=== PATIENT | male | born 1945 | race Caucasian/White ===

== ENCOUNTER 2021-12-19 11:07 | Outpatient (RCR) | payer OTHER, SELFPAY ==
[2021-12-19 11:21] VITALS: BP 127/80; PULSE 57; RESP 16; TEMP 35.8; O2SAT 97
[2021-12-19] MEDS: DEGARELIX ACETATE 80 MG INJ SUBCUT (11:48)
== END 2021-12-23 23:59 | disposition home or self-care (01) ==
LOC: CCIC 11:07
PROVIDERS: PCP Family Medicine; Visit Provider Internal Medicine
DX: C61 Malignant neoplasm of prostate (principal)
CPT/HCPCS: 96401; J9155

== ENCOUNTER 2022-01-04 11:12 | Outpatient (CLI) | payer OTHER, SELFPAY | END 2022-01-04 11:13 | disposition home or self-care (01) | LOC: RAD 11:14 | PROVIDERS: PCP Family Medicine; Visit Provider Internal Medicine Cardiovascular Disease | DX: I47.1 Supraventricular tachycardia (principal); Z95.1 Presence of aortocoronary bypass graft; Z95.810 Presence of automatic (implantable) cardiac defibrillator | CPT/HCPCS: 93306 ==

== ENCOUNTER 2022-01-24 11:03 | Outpatient (RCR) | payer OTHER, SELFPAY ==
--- NOTE | 2022-01-10 16:35 | ONC.NURNOTE ---
Authorization: User: Margaux Almanza Date: 10/09/21 11:36 Type: Eligibility Determination Note... Received request for prior auth for degrelix ([id number]). Per Leigh at [facility], prior auth is not required for this medication. call ref #[id number]
--- NOTE | 2022-01-15 09:31 | ONC.NURNOTE ---
Stop treatment with firmagon: Received call from [facility] for Dr. Barrie Brink. Mr. Metz has decided to stop firmagon treatment. Appointment for 01/16/22 cancelled. Pharmacy notified.
[2022-01-24 17:02] LABS: PSA Diagnostic* < 0.06 ng/mL (0.10-4.00)
[2022-01-27 04:42] LABS: Testosterone, Adult Male < 3 ng/dL (300-720)
--- NOTE | 2022-01-30 08:43 | ONC.NURNOTE ---
Patient called today stating that he had a lingering cough from testing positive for COVID on 01/15. He did an at home test and continues to be positive. Ran this past Clinic RN. Decided it would be best to move his appointment out 1 week. Rescheduled for next friday02/06/22 at 1500. Patient was notified of this and is able to come next weekend.
== END 2022-07-23 23:59 | disposition home or self-care (01) ==
LOC: CCIC 11:03
PROVIDERS: Clinical Nurse Specialist; PCP Family Medicine; Visit Provider Internal Medicine
DX: C61 Malignant neoplasm of prostate (principal)
CPT/HCPCS: 36415; 84153; 84403; 99212; 99213

== ENCOUNTER 2023-10-15 14:26 | Emergency (ER) | payer OTHER, SELFPAY ==
--- NOTE | 2023-10-15 14:29 | XR_ITS ---
Patient: VASQUEZ MENDEZ Facility:?[facility] Patient ID:?[id number] Site Patient ID:?[id number]. Site :?[id number] Study:?XRay-Extremity Left FEMUR 2 VIEWS-10/15/2023 3:48:49 PM Ordering Physician:KARLA Final Report: Indication: FALL, LT DISTAL FEMUR PAIN Technique: Two views of the left femur Comparison: None Findings: No acute, displaced fracture or malalignment. Likely sequela of remote greater trochanter avulsion fracture. 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 No significant osteoarthritic degenerative changes of the knee. There may be a trace suprapatellar joint effusion. No suspicious osseous lesions. Vascular calcifications. Vascular clips seen in the soft tissues along the medial aspect of the knee. Impression: No acute fracture or malalignment. Dictated by Eloy Martinez MD @ 10/15/2023 4:09:26 PM Signed by:?Eloy Martinez MD @10/15/2023 4:09:26 PM (Electronic Signature)
[2023-10-15 14:31] VITALS: BP 181/82; PULSE 60; RESP 18; TEMP 36.3; O2SAT 97; BMI 28.4
--- NOTE | 2023-10-15 14:48 | ED.LOWEXIN ---
HPI - Extremity Injury (Lower) General Date Seen: 10/15/23 Chief Complaint: Extremity Pain/Injury, Lower Stated Complaint: Fall, L leg injury Time Seen by Provider: 10/15/23 14:30 Source: patient Mode of arrival: ambulatory Limitations: no limitations History of Present Illness HPI Narrative: Patient is an 78-year-old male presenting for left leg pain. He was mowing the lawn when he says he slipped and fell and he was backing hurting his left leg. States the pain is just proximal to his knee on the medial aspect. Has been unable to get put pressure on it secondary to pain but was able to move with the help of a walker. No other injuries noted. Denies hitting head. States he thought he heard something snap when he fell. At rest he has no pain. No other concerns noted at this time. Denies any numbness to the legs. Related Data Home Medications ?Medication ?Instructions ?Recorded ?Confirmed aspirin 81 mg capsule 81 mg PO DAILY 12/17/21 02/06/22 atenolol 25 mg tablet 25 mg PO DAILY 12/17/21 10/15/23 cholecalciferol (vitamin D3) 25 25 mcg PO DAILY 12/17/21 02/06/22 mcg (1,000 unit) capsule (Vitamin D3) coenzyme Q10 10 mg capsule 10 mg PO DAILY 12/17/21 02/06/22 ibuprofen 200 mg capsule 200 mg PO Q6-8H PRN 12/17/21 02/06/22 melatonin 3 mg capsule 3 mg PO HS PRN 12/17/21 02/06/22 multivitamin 1 tab PO DAILY 12/17/21 02/06/22 omega 9-hka-lcm-fish oil 1,000 mg 1 cap PO DAILY 12/17/21 02/06/22 (120 mg-180 mg) capsule (Fish Oil) simvastatin 20 mg tablet 20 mg PO DAILY 12/17/21 10/15/23 zinc sulfate 50 mg zinc (220 mg) 50 mg PO .week 02/06/22 02/06/22 tablet apixaban 5 mg tablet (Eliquis) 5 mg PO BID 10/15/23 10/15/23 Allergies Allergy/AdvReac Type Severity Reaction Status Date / Time No Known Allergies Allergy Unknown Unverified 12/25/21 15:32 Review of Systems Narrative: Pertinent systems reviewed and were negative unless stated in HPI PFSH [facility] Medical History (Updated 10/15/23 @ 16:23 by Nicolas Mayo, DO) Implantable cardioverter-defibrillator (ICD) in situ ?Z95.810 - Presence of automatic (implantable) cardiac defibrillator (ICD-10) PSVT (paroxysmal supraventricular tachycardia) ?I47.1 - Supraventricular tachycardia (ICD-10) Cardiac arrest (~2003) ?I46.9 - Cardiac arrest, cause unspecified (ICD-10) Prostate cancer ?C61 - Malignant neoplasm of prostate (ICD-10) Surgical History (Updated 12/19/21 @ 10:12 by Tena Sutherland, LITIGATION SUPPORT ANALYST) S/P prostatectomy ?Z90.79 - Acquired absence of other genital organ(s) (ICD-10) Social History Smoking Status: Never smoker Do you use any of these nicotine containing products: None Second hand tobacco smoke exposure: No How often do you have a drink containing alcohol: never AUDIT-C Alcohol total score: 0 Non-prescribed substance use: denies use service: No Exam Narrative: Exam Narrative: Const: Well-nourished, Well-developed, in mild distress Eyes: PERRL, no conjunctival injection, and symmetrical lids HENT: Atraumatic external nose and ears. Moist mucous membranes. CVS: Peripheral pulses 2+ and equal in lower extremities MSK:Extremities w/o deformity, Normal Active ROM Skin: Warm, Dry. No rashes or lesions. Neuro: Normal Muscle tone, No focal neurological deficits. Psych: Awake, Alert, & Oriented x3. Appropriate mood and affect. Const: Vital Signs, click to edit/add: Vital Signs - 24 hr 10/15/23 14:31 Temperature 97.3 F L Pulse Rate [Right Pulse Oximeter] 60 Respiratory Rate 18 Blood Pressure [Ri ght Upper Arm] 181/82 H Pulse Oximetry 97 Oxygen Delivery Me thod Room Air Course Vital Signs Vital signs: Initial Vital Signs Temperature 97.3 F L 10/15/23 14:31 Temperature Source Temporal Artery Scan 10/15/23 14:31 Pulse Rate 60 10/15/23 14:31 Respiratory Rate 18 10/15/23 14:31 Blood Pressure 181/82 H 10/15/23 14:31 Blood Pressure Mean 115 H 10/15/23 14:31 Blood Pressure Position Sitting 10/15/23 14:31 Pulse Oximetry 97 10/15/23 14:31 Oxygen Delivery Method Room Air 10/15/23 14:31 Vital Signs Temperature 97.3 F L 10/15/23 14:31 Pulse Rate 60 10/15/23 14:31 Respiratory Rate 18 10/15/23 14:31 Blood Pressure 181/82 H 10/15/23 14:31 Pulse Oximetry 97 10/15/23 14:31 Oxygen Delivery Method Room Air 10/15/23 14:31 Temperature 97.3 F L 10/15/23 14:31 Pulse Rate 60 10/15/23 14:31 Respiratory Rate 18 10/15/23 14:31 Blood Pressure 181/82 H 10/15/23 14:31 Pulse Oximetry 97 10/15/23 14:31 Oxygen Delivery Method Room Air 10/15/23 14:31 Medications Administered Medications: Discontinued Medications Generic Name Dose Route Start Last Admin Trade Name Freq PRN Reason Stop Dose Admin Ketorolac Tromethamine 30 mg 10/15/23 14:49 10/15/23 15:29 Ketorolac 30 Mg/Ml Inj IM 10/15/23 14:50 30 mg ONCE ONE Administration MDM - Extremity Injury (Lower) MDM Narrative Medical decision making narrative: Patient is an 78-year-old male presenting for left leg pain. This occurred after fall. X-ray of the femur was ordered. Reviewed myself the radiologist showing no signs of a fracture. Patient is still having some difficulty point pressure on the left leg but is able ambulate with a walker. Seth wrap was placed around the area of pain. I spoke to him his about possible admission under observation versus discharge home and orthopedic follow-up. He will be for discharge at this time. This seems reasonable as he was able to ambulate with a walker. Imaging Data Left femur x-ray: Attestation: I have reviewed the pertinent imaging results. Radiologist's impression: No acute fracture or malalignment. Dictated by Eloy Martinez MD @ 10/15/2023 4:09:26 PM Discharge Plan Discharge Clinical Impression: Acute leg pain Patient Disposition: Home, Self-Care Condition: Stable Instructions: Leg Pain (ED) Additional Instructions: Take Tylenol and ibuprofen for pain. Return for new or worsening symptoms. If you are persistently unable to walk by this Friday try to follow-up with orthopedics. You can schedule a schedule appointment at [phone] Prescriptions: No Action aspirin 81 mg capsule 81 mg PO DAILY atenolol 25 mg tablet 25 mg PO DAILY cholecalciferol (vitamin D3) [Vitamin D3] 25 mcg (1,000 unit) capsule 25 mcg PO DAILY coenzyme Q10 10 mg capsule 10 mg PO DAILY omega 5-onn-vci-fish oil [Fish Oil] 1,000 mg (120 mg-180 mg) capsule 1 cap PO DAILY ibuprofen 200 mg capsule 200 mg PO Q6-8H PRN melatonin 3 mg capsule 3 mg PO HS PRN multivitamin Tablet 1 tab PO DAILY simvastatin 20 mg tablet 20 mg PO DAILY zinc sulfate 50 mg zinc (220 mg) tablet 50 mg PO .week Eliquis 5 mg tablet 5 mg PO BID Follow Up/Referrals: Emeterio Chacko MD [Primary Care Provider] - Stand Alone [facility]: [facility] Info Instructions
[2023-10-15] MEDS: KETOROLAC 30 MG/ML inj IM (15:29)
== END 2023-10-15 16:30 | disposition home or self-care (01) ==
PROVIDERS: Emergency Provider Student in an Organized Health Care Education/Training Program; PCP Family Medicine
DX: M79.605 Pain in left leg (principal)
CPT/HCPCS: 73552; 96372; 99282; 99284; J1885